=== PATIENT | female | born 1975 | race African-American/Black ===

== ENCOUNTER 2018-06-03 08:56 | Day surgery (SDC) | payer OTHER ==
[2018-06-03] MEDS ORDERED: dexameTHASONE 4 MG/ML 1ML VIAL (J1100) As Ordered ×2 (09:13)
[2018-06-03] MEDS ORDERED: LIDOCAINE 2% INJ 100 MG/5 ML SDV (FOR ANES.) As Ordered (09:13)
[2018-06-03] MEDS ORDERED: PROPOFOL 200 MG/20 ML VIAL As Ordered (09:13)
[2018-06-03] MEDS ORDERED: MIDAZOLAM INJ 2 MG/2 ML VIAL (J2250) As Ordered (09:13)
[2018-06-03] MEDS ORDERED: fentaNYL 100 MCG/2 ML INJECTION (J3010) As Ordered ×3 (09:13→13:43)
[2018-06-03] MEDS ORDERED: ROCURONIUM BROMIDE 50 MG/5 ML VIAL As Ordered (09:13)
[2018-06-03 09:31] LABS: HEMATOCRIT 37.2 % (36.0-47.0); HEMOGLOBIN 12.6 g/dl (12.0-15.5); MEAN CORPUSCULAR HEMOGLOBIN 27.8 pg (27.0-33.0); MEAN CORPUSCULAR HGB CONC 33.9 g/dl (32.0-36.5); MEAN CORPUSCULAR VOLUME 82.1 fl (80.0-96.0); PLATELET COUNT, AUTOMATED 190 10^3/uL (150-450); RED BLOOD COUNT 4.53 10^6/uL (4.00-5.40); RED CELL DISTRIBUTION WIDTH 13.7 % (11.5-14.5); WHITE BLOOD COUNT 6.3 10^3/uL (4.0-10.0)
[2018-06-03 09:52] LABS: ANION GAP 5 MEQ/L (8-16); BLOOD UREA NITROGEN 12 MG/DL (7-18); CALCIUM LEVEL 8.3 MG/DL (8.5-10.1); CARBON DIOXIDE LEVEL 31 MEQ/L (21-32); CHLORIDE LEVEL 107 MEQ/L (98-107); CREATININE FOR GFR 0.93 MG/DL (0.55-1.30); GLOMERULAR FILTRATION RATE > 60.0 (>58); GLUCOSE, FASTING 94 MG/DL (70-100); HCG, SERUM QUANTITATIVE < 1.0 MIU/ML; SODIUM LEVEL 143 MEQ/L (136-145)
[2018-06-03] MEDS: LR 1,000 ML IV (10:00)
[2018-06-03] MEDS ORDERED: PHENYLEPHRINE INJ 10MG/ML VIAL (J2370) As Ordered (10:58)
[2018-06-03] MEDS ORDERED: ACETAMINOPHEN 325 MG SUPP As Ordered (11:49)
[2018-06-03] MEDS ORDERED: ACETAMINOPHEN 650 MG SUPP As Ordered (12:18)
[2018-06-03] MEDS: ACETAMINOPHEN 650 MG SUPP PR (12:28)
[2018-06-03] MEDS: METHYLENE BLUE 0.5% (5MG/ML) 10 ML AMP (PROVAYBLUE)(Q9968 PER 1MG) As Ordered (12:36)
[2018-06-03] MEDS ORDERED: ONDANSETRON 4MG/2ML VIAL (J2405) As Ordered ×2 (12:43→15:55)
[2018-06-03] MEDS: BUPIVACAINE HCL 0.5% 10 ML VIAL As Ordered (13:02)
[2018-06-03] MEDS: ceFAZolin 1GM INJ (J0690 PER 500MG) As Ordered (13:07)
[2018-06-03] MEDS ORDERED: GLYCOPYRROLATE INJ 0.2 MG/ML 2 ML VIAL As Ordered (13:09)
[2018-06-03] MEDS ORDERED: NEOSTIGMINE 10 MG/10 ML VIAL (J2710) As Ordered (13:09)
[2018-06-03] MEDS ORDERED: KETOROLAC 60 MG/2 ML VIAL (J1885) As Ordered (13:09)
[2018-06-03] MEDS ORDERED: PERCOCET 5MG/325MG TAB As Ordered (13:43)
[2018-06-03] MEDS: PERCOCET 5MG/325MG TAB PO ×2 (13:45→14:15)
[2018-06-03] MEDS ORDERED: LR 1,000 ML IV (13:45)
[2018-06-03] MEDS: fentaNYL 100 MCG/2 ML INJECTION (J3010) IV ×4 (13:48→14:03)
[2018-06-03] MEDS: ONDANSETRON 4MG/2ML VIAL (J2405) IV (16:00)
== END 2018-06-03 16:50 | disposition home or self-care (01) ==
LOC: M SDC 08:56
DX: N97.1 Female infertility of tubal origin (principal); N85.4 Malposition of uterus; N80.9 Endometriosis, unspecified; R73.03 Prediabetes; E28.2 Polycystic ovarian syndrome; M12.9 Arthropathy, unspecified; F41.9 Anxiety disorder, unspecified; Z79.84 Long term (current) use of oral hypoglycemic drugs
CPT/HCPCS: 49320